=== PATIENT | male | born 1985 | race Caucasian/White ===

== ENCOUNTER 2016-07-02 09:19 | Emergency (ER) | payer SELFPAY ==
[2016-07-02 09:23] VITALS: BP 117/79; PULSE 71; TEMP 98; BMI 23.6
--- NOTE | 2016-07-02 09:59 | PDOC ---
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 The source is currently being tested for HIV and HEPatitis. Pt has no known medical history . Tetanus given 201507/02/16 10:01 07/02/16 10:01 Timing: just prior to arrival Exposed Location: Right: Finger(s) (middle ) Assessing Significant Risk PEP: Yes Percutaneous Past History - Past Medical History Allergies/Adverse Reactions: Allergies cefaclor [From Ceclor] Allergy (Mild, Verified 07/02/16 09:23) Rash Sulfa (Sulfonamide Antibiotics) Allergy (Verified 07/02/16 09:23) Rash Home Medications: Ambulatory Orders NK [No Known Home Medication] 03/18/16 Surgical History: Yes: No Surgical History - Social History Smoking Status: Never smoked Review of Systems - Review of Systems Able to Perform ROS?: Yes Comments:: 07/02/16 10:02 Constitutional: No: Symptoms Reported Integumentary: Yes: Symptoms Reported *Physical Exam - Vital Signs Last Vital Signs Temp Pulse Resp BP Pulse Ox 98.0 F 71 20 117/79 99 07/02/16 09:20 07/02/16 09:20 07/02/16 09:20 07/02/16 09:20 07/02/16 09:20 - Physical Exam General Appearance: Yes: Nourished, Appropriately Dressed HEENT: positive: EOMI, JAMEL, TMs Normal, Pharynx Normal Extremity: positive: Normal Capillary Refill, Other (right middle digit with puncture wound at the distal tip , bleeding controlled. nv intact FROM neg numbness or tingling) Integumentary: positive: Normal Color, Dry, Warm Neurologic: positive: Fully Oriented, Alert, Normal Mood/Affect, Normal Response , Motor Strength 5/5 Post Exposure - ED Protocol - Exposure Treatment Washing/Decontamination: Soap/Water Source Patient HIV Status:: Unknown Is PEP indicated?: No Prophylaxis for HIV discussed?: No Prophylaxis given?: No Baseline bloods drawn prophylaxis:(use *Exposure-Hosp Emp): Yes - Referrals Employee Referred to Employee Health:: Yes Medical Decision Making - Medical Decision Making 07/02/16 10:02 cc: needle stick right middle digit wound 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 pt agrees to plan and understands the dc follow up inst. *DC/Admit/Observation/Transfer Diagnosis at time of Disposition: Exposure to blood - Discharge Dispostion Disposition: HOME Condition at time of disposition: Fair - Referrals Referrals: STAFF,NOT ON [Primary Care Provider] - - Patient Instructions Printed Discharge Instructions: How to Handle Body Fluid Exposure -- Healthcare Worker Additional Instructions: follow with [facility] , they will follow up your blood tests and the source pt blood tests to see if you need any HIV medication keep wound clean with soap and water bacitracin and cover with bandaid until healed - Post Discharge Activity Work/School Note: Back to Work
[2016-07-02] MEDS ORDERED: BACITRACIN 30 GM TUBE TOPICAL OINTMENT TP SCH (10:00)
[2016-07-02 11:03] LABS: BASOPHIL 0.4 % (0-2.0); EOSINOPHIL 0.3 % (0-4.5); MCH 30.5 pg (25.7-33.7); MCHC 33.5 g/dl (32.0-35.9); MEAN CELL VOLUME 90.9 fl (80-96); NEUTROPHILS 73.9 % (42.8-82.8); PLATELET COUNT 194 K/MM3 (134-434); RDW 12.2 % (11.9-15.9)
[2016-07-02 12:23] LABS: HIV 1 & 2 AB NEGATIVE; HIV 1 AGp24 NEGATIVE
[2016-07-02 12:41] LABS: ALBUMIN 4.7 g/dl (3.4-5.0); ANION GAP 12 (8-16); BILIRUBIN,TOTAL 0.4 mg/dL (0.2-1.0); CALCIUM 9.8 mg/dL (8.5-10.1); CHOLESTEROL 151 mg/dL (50-200); CO2 23 mmol/L (21-32); GLUCOSE,RANDOM 92 mg/dL (74-106); LDH 189 U/L (87-241); PHOSPHOROUS 3.2 mg/dL (2.5-4.9); SGOT/AST 23 U/L (15-37); SGPT/ALT 31 U/L (12-78); TOT PROT 7.9 g/dl (6.4-8.2); URIC ACID 9.5 mg/dL (2.6-7.2)
[2016-07-02 12:42] LABS: ALK PHOS 59 U/L (45-117)
[2016-07-03 06:06] LABS: HEP B SURFACE AB Reactive (.)
== END 2016-07-02 10:30 | disposition home or self-care (01) ==
LOC: JERFT 09:19
DX: S61.232A Puncture wound without foreign body of right middle finger without damage to nail, initial encounter (principal); Z77.21 Contact with and (suspected) exposure to potentially hazardous body fluids; W46.1XXA Contact with contaminated hypodermic needle, initial encounter; Y93.89 Activity, other specified; Y92.234 Operating room of hospital as the place of occurrence of the external cause; Y99.0 Civilian activity done for income or pay
CPT/HCPCS: 36415; 80053; 82465; 82977; 83615; 84100; 84478; 84550; 85025; 86704; 86706; 87340; 87389; 99282-25

== ENCOUNTER 2021-10-22 15:14 | Emergency (ER) | payer OTHER ==
[2021-10-22 15:20] VITALS: BP 137/83; PULSE 71; BMI 24.4
[2021-10-22 16:14] LABS: BASO % 0.1 % (0-2.0); EOS % 0.1 % (0-4.5); HEMATOCRIT 42.3 % (35.4-49); HEMOGLOBIN 14.4 GM/dL (11.7-16.9); LYMPH % 14.6 % (8-40); MCHC 34.1 g/dl (32.0-35.9); MEAN PLT VOLUME 8.3 fl (7.5-11.1); MONO % 5.4 % (3.8-10.2); NEUT % 79.8 % (42.8-82.8); PLATELET COUNT 282 10^3/uL (134-434); RBC 4.81 M/mm3 (4.00-5.60); RDW 12.4 % (11.9-15.9); WHITE BLOOD COUNT 13.2 K/mm3 (4.0-10.0)
[2021-10-22 17:27] LABS: CALCIUM 9.7 mg/dL (8.5-10.1)
[2021-10-22 17:29] LABS: ALBUMIN 4.4 g/dl (3.4-5.0); BLOOD UREA NITROGEN 18.5 mg/dL (7-18)
[2021-10-22 17:31] LABS: URIC ACID 7.5 mg/dL (2.6-7.2)
[2021-10-22 17:32] LABS: CREATININE 0.9 mg/dL (0.55-1.3)
[2021-10-22 17:33] LABS: BILIRUBIN,TOTAL 0.4 mg/dL (0.2-1); TOT PROT 7.9 g/dl (6.4-8.2)
[2021-10-22 17:45] LABS: SYPHILIS W/ RPR CONF NON-REACTIVE (NONREACTIVE)
[2021-10-22 18:14] LABS: HIV INTERPRETATION NEGATIVE (NEGATIVE)
== END 2021-10-22 15:45 | disposition home or self-care (01) ==
LOC: JER 15:14 → JERFT 15:14
DX: Z77.21 Contact with and (suspected) exposure to potentially hazardous body fluids (principal)
CPT/HCPCS: 36415; 80053; 82465; 84478; 84550; 85025; 86704; 86780; 86803; 87340; 87389; 87517; 99283-25